=== PATIENT | male | born 1960 | race Caucasian/White ===

== ENCOUNTER 2021-10-04 11:18 | Day surgery (SDC) | payer MEDICARE, OTHER ==
[2021-09-28 16:10] VITALS: BMI 36.6
[~2021-10-04 11:18] MED LIST: ALBUTEROL NEB (CONC) 2.5 MG/0.5 ML INHALATION ONE; ATROPINE SULFATE 0.4 MG/ML 1 ML VIAL IM ONE; LACTATED RINGERS 1,000 ML IV SCH; LIDOCAINE 2% (PF) 20 MG/ML 5 ML VIAL INHALATION ONE; LIDOCAINE VISCOUS 300 MG/15 ML CUP MUCOUS MEM ONE
[2021-10-04] MEDS ORDERED: KETAMINE 10 MG/ML 20 ML VIAL ONE (12:20)
[2021-10-04] MEDS ORDERED: MIDAZOLAM 2 MG/2 ML VIAL ONE (12:20)
[2021-10-04] MEDS ORDERED: LIDOCAINE 1% INJ 10MG/ML (20 ML MDV) ONE (12:20)
[2021-10-04] MEDS ORDERED: PROPOFOL 10 MG/ML 20 ML VIAL IV ONE (12:20)
[2021-10-04 13:11] VITALS: RESP 16
[2021-10-04 13:24] VITALS: BP 111/63; PULSE 104
[2021-10-04] MEDS ORDERED: LIDOCAINE 1% (10MG/ML) FOR IV START INTRATRACH ONE (13:35)
--- NOTE | 2021-10-04 19:11 | PCN ---
PROCEDURE NOTE PROCEDURE PERFORMED: Bronchoscopy, airway examination, therapeutic lavage, BAL right middle lobe. PREOP DIAGNOSIS: Chronic cough. POSTOP DIAGNOSIS: Chronic cough. OPERATORS: Dr. Stearns and Dr. Suero. There was informed consent and universal timeout. The patient's procedure took place in the endoscopy room #1 in the [facility]. DESCRIPTION OF PROCEDURE: After the patient was sedated and fully monitored, by Anesthesia, who provided the patient general anesthesia, the bronchoscope was inserted through the right nostril. It passed through the right nasopharynx into the oropharynx. The hypopharynx was identified. The hypopharyngeal structures, including anterior commissure, true cords, false cords, arytenoids, piriform sinuses, right and left valleculae and epiglottis were all evaluated. There was some crowding of the hypopharynx. No lesion was noted. After topicalization of the glottic opening, the bronchoscope was pushed through the glottic opening into the trachea. The trachea was a bit erythematous. There was no tracheal lesions. The tracheal ana was sharp. The right and left mainstem were topicalized. The right upper lobe and its 3 segments, right middle lobe and its 2 segments, right lower lobe and its 5 segments, the left upper lobe and its 2 segments, the lingula and its 2 segments and the left lower lobe and its 4 segments were all evaluated. There was diffuse mild to moderate bronchitis throughout. The airways were erythematous and hyperemic. There were thick secretions noted. They were suctioned. There was no dominant mass or tumor. There was no bleeding. The bronchoscope was wedged into the right middle lobe. The BAL took place. The fluid will be sent for analysis. The patient tolerated the procedure well. There was no major complication. The patient will be recovered. MMODL / IJN: [id number] /
[2021-10-05 08:10] LABS: Appearance,BF Cloudy
== END 2021-10-04 14:06 | disposition home or self-care (01) ==
LOC: ORWHC2ENDO 11:18
PROVIDERS: ATTEND Internal Medicine Critical Care Medicine
DX: R05.3 Chronic cough (principal); E78.2 Mixed hyperlipidemia; F41.9 Anxiety disorder, unspecified; F32.A Depression, unspecified; I10 Essential (primary) hypertension; K21.9 Gastro-esophageal reflux disease without esophagitis; M48.061 Spinal stenosis, lumbar region without neurogenic claudication; Z82.49 Family history of ischemic heart disease and other diseases of the circulatory system; Z80.3 Family history of malignant neoplasm of breast; Z87.891 Personal history of nicotine dependence; Z79.1 Long term (current) use of non-steroidal anti-inflammatories (NSAID); Z79.899 Other long term (current) drug therapy; Z88.8 Allergy status to other drugs, medicaments and biological substances
CPT/HCPCS: 87798 ×3; 87496; 87498; 87529; 88108; 88305; 89050; 87252; 87502; 87634; 87070; 87205; 87116; 87102; 87206; 31624; J2250; J0461; J2001; J2704